=== PATIENT | female | born 1950 | race Caucasian/White ===

== ENCOUNTER → 2017-01-04 | Outpatient (CLI) | payer OTHER | LOC: BMCIMAGING 09:37 | PROVIDERS: ATTEND Orthopaedic Surgery | DX: M16.11 Unilateral primary osteoarthritis, right hip (principal) ==

== ENCOUNTER → 2017-01-12 | Outpatient (CLI) | payer OTHER | LOC: CIMAGING 10:16 | PROVIDERS: ATTEND Orthopaedic Surgery | DX: Z01.818 Encounter for other preprocedural examination (principal); M16.11 Unilateral primary osteoarthritis, right hip; M85.48 Solitary bone cyst, other site; M51.36 Other intervertebral disc degeneration, lumbar region; M47.896 Other spondylosis, lumbar region | CPT/HCPCS: 72192-PO ==

== ENCOUNTER 2017-02-05 12:53 | Inpatient (IN) | payer OTHER ==
--- NOTE | 2017-02-05 12:38 | PDHPUP ---
History & Physical Update H&P update statement: This history and physical update is based on an assessment of the patient which was completed after admission or registration (within 24 hours), but prior to the surgery/procedure.
[2017-02-05] MEDS ORDERED: ROPIVACAINE 0.2% 80 MG, EPINEPHrine 0.2 MG, morphINE 10 MG in BAG 0 ML IU ONE (13:30)
[2017-02-05] MEDS ORDERED: FAMOTIDINE 20 MG TAB PO ONE (13:30)
[2017-02-05] MEDS ORDERED: TRANEXAMIC ACID 3,000 MG in NS 50 ML IRR ONE (13:30)
[2017-02-05] MEDS ORDERED: NS IV ONE (13:30)
[2017-02-05] MEDS ORDERED: ACETAMINOPHEN 325 MG TAB PO ONE (13:30)
[2017-02-05] MEDS ORDERED: ceFAZolin 2 GM/DEXTROSE 100 ML IV ONE (13:30)
[2017-02-05] MEDS ORDERED: TRANEXAMIC ACID IV ONE (13:30)
[2017-02-05] MEDS ORDERED: LIDOCAINE 1% 2 ML INJ ID PRN (13:40)
[2017-02-05] MEDS ORDERED: LR 1,000 ML IV ONE (13:40)
[2017-02-05] MEDS ORDERED: THROMBIN (BOVINE) 5,000 UNIT VIAL TP ONE (13:49)
[2017-02-05] MEDS ORDERED: CALCIUM CHLORIDE 1 GM/10 ML INJ ONE (13:49)
[2017-02-05] MEDS ORDERED: ceFAZolin 1 GM/5 ML SYR ONE (13:50)
[2017-02-05] MEDS ORDERED: MIDAZOLAM 2 MG/2 ML VIAL IVP ONE (14:07)
--- NOTE | 2017-02-05 14:07 | PDANEPAE ---
ANE Past Medical History - Cardiovascular History Hx Hypertension: No Hx Arrhythmias: No Hx Chest Pain: No Hx Coronary Artery / Peripheral Vascular Disease: No Hx CHF / Valvular Disease: No Hx Palpitations: No - Pulmonary History Hx COPD: No Hx Asthma/Reactive Airway Disease: No Hx Recent Upper Respiratory Infection: No Hx Oxygen in Use at Home: No Hx Sleep Apnea: Yes Sleep Apnea Screening Result - Last Documented: Negative Pulmonary History Comment: CHILDHOOD ASTHMA. ENVIRONMENTAL - Neurologic History Hx Cerebrovascular Accident: No Hx Seizures: No Hx Dementia: No - Endocrine History Hx Diabetes: No - Renal History Hx Renal Disorders: No - Liver History Hx Hepatic Disorders: No Hepatic History Comment: LOW FUNCTIONING GALL BLADDER - Neurological & Psychiatric Hx Hx Neurological and Psychiatric Disorders: No Neurological / Psychiatric History Comment: Occ back pain-sravani in a.m. - Cancer History Hx Cancer: Yes Cancer History Comment: BREAST CANCER R 2013 - LUMPECTOMY & RADIATION - Congenital Disorder History Hx Congenital Disorders: No - GI History Hx Gastrointestinal Disorders: No - Other Health History Other Health History: OA -R hip - Chronic Pain History Chronic Pain: Yes (R hip) - Surgical History Prior Surgeries: Lap nikhil 2016. 02/10/15 left river with jignesh. LUMPECTOMY R BREAST. REVISION FOR MARGINS. L FOOT BUNIONECTOMY. HYSTERECTOMY. EXPLOR LAP APPENDECTOMY-age 10. FIBROIDECTOMY. TONSILLECTOMY ANE Review of Systems - Exercise capacity METS (RN): 4 METS ANE Patient History - Allergies Allergies/Adverse Reactions: aspirin Allergy (Verified 01/24/17 11:51) Other-Enter Comments - Home Medications Home Medications: Herbals/Supplements -Info Only 1 ea PO DAILY 01/17/17 [Last Taken 2 Weeks Ago] - NPO status NPO Since - Liquids (Date): 02/05/17 NPO Since - Liquids (Time): 08:00 NPO Since - Solids (Date): 02/04/17 NPO Since - Solids (Time): 20:30 - Smoking Hx Smoking Status: Never smoked - Family Anes Hx Family Hx Anesthesia Complications: NEG ANE Labs/Vital Signs - Vital Signs Blood Pressure: 127/58 Heart Rate: 60 Respiratory Rate: 18 O2 Sat (%): 98 Height: 170.18 cm Weight: 58.513 kg ANE Physical Exam - Airway Mallampati Score: Class 1 Mouth exam: normal dental/mouth exam - Pulmonary Pulmonary: no respiratory distress - Cardiovascular Cardiovascular: regular rate and rhythym - ASA Status ASA Status: I (aspirin allergy noted)
[2017-02-05] MEDS ORDERED: fentaNYL 100 MCG/2 ML INJ ONE ×3 (15:34→19:20)
[2017-02-05] MEDS ORDERED: PROPOFOL/EMULSION 500 MG/50 ML BOTTLE IV ONE (15:34)
[2017-02-05] MEDS ORDERED: MIDAZOLAM 2 MG/2 ML VIAL ONE (15:34)
[2017-02-05] MEDS ORDERED: NALOXONE HCL 0.4 MG/ML INJ IVP PRN (17:02)
[2017-02-05] MEDS ORDERED: ONDANSETRON 4 MG/2 ML VIAL IVP PRN ×2 (17:03→17:19)
[2017-02-05] MEDS ORDERED: DIPHENOXYLATE/ATROPINE LOMOTIL 1 TAB PO PRN (17:19)
[2017-02-05] MEDS ORDERED: METOCLOPRAMIDE 10 MG/2 ML VIAL IVP PRN (17:19)
[2017-02-05] MEDS ORDERED: PROMETHAZINE HCL 25 MG/ML INJ IVP PRN ×2 (17:19→17:49)
[2017-02-05] MEDS ORDERED: ONDANSETRON DISINTEGRATING 4 MG TAB PO PRN (17:19)
[2017-02-05] MEDS ORDERED: LACTULOSE 20 GM/30 ML UDCUP PO PRN (17:19)
[2017-02-05] MEDS ORDERED: MAGNESIUM HYDROXIDE 30 ML UDCUP PO PRN (17:19)
[2017-02-05] MEDS ORDERED: BISACODYL 10 MG SUPP PR PRN (17:19)
[2017-02-05] MEDS ORDERED: PROMETHAZINE HCL 25 MG SUPPR PR PRN (17:19)
[2017-02-05] MEDS ORDERED: diphenhydrAMINE 25 MG CAP PO PRN (17:19)
[2017-02-05] MEDS ORDERED: POLYETHYLENE GLYCOL 3350 17 GM PKT PO PRN (17:19)
[2017-02-05] MEDS ORDERED: PHARMACY PAIN CONSULT 1 EA MISC PRN (17:19)
[2017-02-05] MEDS ORDERED: TEMAZEPAM 15 MG CAP PO PRN (17:19)
[2017-02-05] MEDS ORDERED: oxyCODONE IR 5 MG TAB PO PRN (17:19)
[2017-02-05] MEDS ORDERED: LR 1,000 ML IV SCH (17:30)
[2017-02-05] MEDS ORDERED: HYDROmorphONE/DILAUDID 1 MG/ML SYR ONE ×2 (17:47→18:26)
[2017-02-05] MEDS: fentaNYL 100 MCG/2 ML INJ IVP PRN ×2 (17:50→17:59)
[2017-02-05] MEDS: HYDROmorphONE/DILAUDID 1 MG/ML SYR IVP PRN ×5 (17:51→18:45)
--- NOTE | 2017-02-05 17:55 | POSTANESTH ---
Post Anesthetic Evaluation Respiratory Status: Similar to Pre-op Cond. Level of Consciousness/Mental Status: Mildly Sleepy, Arousable Nausea/Vomiting Control: Adequate, Prn Tx Ordered Complications Possibly Related to Anesthesia: None Noted (Narcotic pain management ordered)
[2017-02-05] MEDS ORDERED: PROMETHAZINE HCL 25 MG/ML INJ ONE (18:03)
[2017-02-05] MEDS ORDERED: oxyCODONE IR 5 MG TAB ONE (18:26)
[2017-02-05] MEDS ORDERED: DIAZEPAM 5 MG TAB ONE (18:58)
[2017-02-05] MEDS: DIAZEPAM 5 MG TAB PO PRN (19:00)
[2017-02-05] MEDS: ACETAMINOPHEN 325 MG TAB PO SCH ×2 (20:27→23:38)
[2017-02-05] MEDS: SENNOSIDES/DOCUSATE SODIUM TAB PO SCH (20:27)
[2017-02-05] MEDS: FAMOTIDINE 20 MG TAB PO SCH (20:27)
[2017-02-05] MEDS: ceFAZolin 2 GM/DEXTROSE 100 ML IV SCH (21:47)
[2017-02-06] MEDS: traMADol 50 MG TAB PO PRN ×4 (00:38→21:16)
[2017-02-06] MEDS: ceFAZolin 2 GM/DEXTROSE 100 ML IV SCH (05:33)
[2017-02-06] MEDS: ACETAMINOPHEN 325 MG TAB PO SCH ×4 (05:33→23:24)
--- NOTE | 2017-02-06 07:36 | PDIAF ---
- Diagnosis Diagnosis: right hip djd Code Status: Full Code - Medication Management Discharge Medications: Medications to Continue on Transfer Herbals/Supplements -Info Only 1 ea PO DAILY 01/17/17 [Last Taken 2 Weeks Ago] Discharge Medications: Refer to the Discharge Home Medication list for PRN reason. - Orders Services needed: Physical Therapy Diet Recommendation: no restrictions on diet Diet Texture: Regular Texture Diet Activity/Weight Bearing Restrictions: wbat. anterior hip precautions. daily dressing changes. may shower without bandage. no soaking or immersion. seek attn for increasing redness, swelling , drainage or discharge. f/u at two weeks [facility] call for appointment - Follow Up Care Current Providers and Referrals: Esther Anglin MD [Primary Care Provider] -
[2017-02-06] MEDS: FAMOTIDINE 20 MG TAB PO SCH ×2 (08:23→21:17)
[2017-02-06] MEDS: SENNOSIDES/DOCUSATE SODIUM TAB PO SCH ×2 (08:23→21:17)
[2017-02-06] MEDS: ASPIRIN 81 MG CHEWABLE TAB PO SCH (08:23)
[2017-02-06 08:32] LABS: HEMOGLOBIN 11.1 g/dL (12.6-16.3)
--- NOTE | 2017-02-06 13:52 | GDS ---
[f rep st] DISCHARGE SUMMARY ADMITTING DIAGNOSES: Right hip degenerative joint disease. DISCHARGE DIAGNOSES: Right hip degenerative joint disease. PROCEDURE: Right total hip arthroplasty. HISTORY OF PRESENT ILLNESS: This patient is a 66-year-old woman who has end-stage arthritis to her right hip. Clinical and radiographic features are consistent with this. She has failed all attempt s at conservative management. I have therefore recommended total hip replacement to her right side. She understood the risks, benefits and alternatives, and wished to proceed. Written consent was sig flaquito and placed in the patient's chart. HOSPITAL COURSE: The patient was admitted to the hospital floor after uncomplicated total hip arthr oplasty. She tolerated the procedure well. Postoperatively, she had an uneventful course. At the time of discharge, she is tolerating an oral diet. Her pain is well controlled on oral medic yahir. She is voiding without difficulty. Dressings are clean, dry, and intact. She has negative H omans bilaterally. No calf pain or swelling. X-rays demonstrate anatomic alignment with no fractur e lucency and concentric reduction of the hip. DISCHARGE INSTRUCTIONS: She is weightbearing as tolerated. Anterior hip precautions. Daily dressi ng changes. No soaking or immersion. Follow up in 2 weeks. Seek attention for increasing redness, swelling, drainage, or discharge. She will be discharged to a subacute nursing facility at the lashay moore's request. She has no assistance at home. Followup in 2 weeks for staple removal. /[id number]/MODL
[2017-02-06] MEDS: DIAZEPAM 5 MG TAB PO PRN (15:39)
[2017-02-07 05:12] LABS: HEMATOCRIT 29.2 % (38.0-47.0)
[2017-02-07] MEDS: ACETAMINOPHEN 325 MG TAB PO SCH ×4 (05:59→23:43)
--- NOTE | 2017-02-07 06:44 | SOAPPROG ---
SOAP Progress Note Assessment/Plan: Assessment: s/p right river Plan:d/c to rehab wbat anterior hip precautions f/u at two weeks 02/07/17 06:42 Subjective: lightheaded no cp or sob jami po Objective: Vital Signs Temp Pulse Resp BP Pulse Ox 36.9 C 65 18 110/48 L 93 02/07/17 04:00 02/07/17 04:00 02/07/17 04:00 02/07/17 04:00 02/07/17 04:00 Laboratory Results 02/07/17 04:50 02/06/17 02/07/17 02/08/17 05:59 05:59 05:59 Intake Total 1620 3100 Output Total 1050 6550 Balance 570 -3450 dressing intact intact pf,df,ehl toes warm and pink neg homans carmen sensation intact to light touch ICD10 Worksheet Patient Problems: Problems Problem Status Onset Osteoarthritis of hip Acute
--- NOTE | 2017-02-07 08:45 | GOP ---
[f rep st] OPERATIVE REPORT DATE OF OPERATION: 02/05/2017 SURGEON: Eliel Rae MD SOLID FIBER PASTER OPERATOR: Mike Antony, SENIOR MECHANICAL DESIGNER, TELEPHONE INSTRUMENT SUPERVISOR, planning assistant, who was a medical necessity for the entir ety of the case preop. PREOPERATIVE DIAGNOSIS: Right hip degenerative joint disease. POSTOPERATIVE DIAGNOSIS: Right hip degenerative joint disease. PROCEDURE PERFORMED: Right total hip arthroplasty. FINDINGS: SPECIMENS: To Pathology, the femoral head. ESTIMATED BLOOD LOSS: 300 cc. INDICATIONS: The patient is a 66-year-old woman, who has end-stage arthritis to her right hip. Cli nical and radiographic features are consistent with this. She has failed all attempts at conservati ve management. I have, therefore, recommended total hip replacement. She understood the risks, hannah efits, alternatives, and wished to proceed. Written consent was signed and placed in patient's iliana t. DESCRIPTION OF PROCEDURE: Patient was identified in the preanesthesia area. The right hip clearly demarcated as the operative site with indelible marker. She was given 2 g of Ancef intravenously en route to the operative suite. In the OR, general endotracheal anesthesia was administered. She wa s positioned in the supine position. The pelvis and both lower extremities were sterilely prepped a nd draped in usual fashion. Appropriate time-out procedure was carried out. Attention was first tu rned to the left iliac crest. A 2 cm incision was made. 3 pins were placed, and the pelvic referen ce array affixed. Attention was turned to the right hip. An anterior approach was made. This was carried sharply thr ough the skin and subcutaneous tissue, directly to the fascia over the tensor fascia aniya. This was then elevated, the tensor retracted in a lateral direction. The underlying vascular structures wer e identified, ligated, cauterized, and transected. The rectus elevated off the anterior capsule. R etractors were placed medial to the femoral neck and superior to the femoral neck. A T was made in the capsule. The retractors were placed in an intracapsular position. There was gross eburnation o f the bone. A pelvic reference check point was placed. A bony wedge was removed from the femoral n chandrika, followed by removal of the remaining head. The contents of the acetabulum were sharply excised . The pelvis was reamed with a single stage reamer using the robot assistance after placement of th e robotic data in standard fashion. A 54 mm reamer was utilized to place an opening angle of 40 deg randell and anteversion of 20 degrees. A Tritanium acetabular shell was then impacted, confirmed to be fully seated. A single 6.5 mm cancellous screw was then placed. A 0-degree X3 liner was placed, c onfirmed to be fully seated. Attention was turned to the femur, which was delivered through the use of retractors, extension of t he table. The proximal canal was opened with a rongeur. Serial broaching was carried out to a size 4 broach. Trial reduction was carried out, and ultimately a 36 mm + 0 mm Biolox head was then plac ed across the trunnion. The hip and acetabulum were copiously irrigated with pulsatile lavage solut ion. The hip was reduced. Leg lengths were restored. External rotation to 90 degrees in full exte nsion demonstrated no instability. The wound was instilled with platelet-rich plasma solution. Ten sor fascia aniya closed using 0 Vicryl. The subcutaneous tissue injected with a joint cocktail of ro pivacaine, morphine, Toradol, and epinephrine. The subcutaneous tissue closed using 2-0 Monocryl, a nd the skin was stapled. Sterile dressings were applied. The patient was awakened, extubated, take n to the recovery room in good, stable condition. TOTAL TOURNIQUET TIME: None. COMPLICATIONS: None. IMPLANTS: [place] Tritanium acetabular shell, size 54 mm, 6.5 mm cancellous bone screw, Trident X3 0-degree polyethylene insert, Biolox Delta ceramic head, 36 mm + 0 mm neck length. Accolade 227-deg ree neck angle hip stem, size 4. DISPOSITION: To the recovery room, then to the floor. She is weightbearing as tolerated. Anterior hip precautions. /[id number]/MODL
[2017-02-07] MEDS: FAMOTIDINE 20 MG TAB PO SCH ×2 (09:17→20:33)
[2017-02-07] MEDS: SENNOSIDES/DOCUSATE SODIUM TAB PO SCH ×2 (09:17→20:33)
[2017-02-07] MEDS: ASPIRIN 81 MG CHEWABLE TAB PO SCH (09:17)
[2017-02-08] MEDS: DIAZEPAM 5 MG TAB PO PRN ×2 (01:32→10:30)
[2017-02-08] MEDS: ACETAMINOPHEN 325 MG TAB PO SCH ×2 (05:44→11:23)
--- NOTE | 2017-02-08 06:35 | SOAPPROG ---
SOAP Progress Note Assessment/Plan: Assessment: s/p right river Plan:d/c to rehab wbat anterior hip precautions f/u at two weeks additional 48 hour stay waiting for insurance approval no inpatient needs at this time 02/07/17 06:42 02/08/17 06:34 Subjective: doing well slept well with valium no cp or sob Objective: Vital Signs Temp Pulse Resp BP Pulse Ox 37.0 C 76 18 126/64 H 95 02/07/17 23:31 02/07/17 23:31 02/07/17 23:31 02/07/17 23:31 02/07/17 23:31 Laboratory Results 02/07/17 04:50 02/07/17 02/08/17 02/09/17 05:59 05:59 05:59 Intake Total 3100 2300 Output Total 6550 Balance -3450 2300 dressing clean, dry, and intact intact pf,df,ehl toes warm and pink neg homans bilaterally ICD10 Worksheet Patient Problems: Problems Problem Status Onset Osteoarthritis of hip Acute
[2017-02-08 07:54] VITALS: BP 121/66; PULSE 78; RESP 15; TEMP 97.6; O2SAT 98
[2017-02-08] MEDS: ASPIRIN 81 MG CHEWABLE TAB PO SCH (08:50)
[2017-02-08] MEDS: SENNOSIDES/DOCUSATE SODIUM TAB PO SCH (08:50)
[2017-02-08] MEDS: FAMOTIDINE 20 MG TAB PO SCH (08:50)
--- NOTE | 2017-02-08 15:24 | PDIAF ---
- Diagnosis Diagnosis: right hip djd Code Status: Full Code - Medication Management Discharge Medications: Medications to Continue on Transfer Herbals/Supplements -Info Only 1 ea PO DAILY 01/17/17 [Last Taken 2 Weeks Ago] Aspirin [Aspirin 81mg (*)] 81 mg PO DAILY #0 tab.chew 02/06/17 [Last Taken Unknown] oxyCODONE IR [Oxycodone Ir (*)] 5 - 10 mg PO Q3HRS PRN #70 tab 02/06/17 [Last Taken Unknown] Diazepam [Valium 5 MG (*)] 5 mg PO Q6HRS PRN #30 tab 02/08/17 [Last Taken Unknown] Discharge Medications: Refer to the Discharge Home Medication list for PRN reason. - Orders Services needed: Physical Therapy Diet Recommendation: no restrictions on diet Diet Texture: Regular Texture Diet Activity/Weight Bearing Restrictions: wbat. anterior hip precautions. daily dressing changes. may shower without bandage. no soaking or immersion. seek attn for increasing redness, swelling , drainage or discharge. f/u at two weeks [facility] call for appointment - Follow Up Care Current Providers and Referrals: Esther Anglin MD [Primary Care Provider] - Eliel Rae MD [Medical Doctor] - follow up in 2 weeks (call to schedule appt)
== END 2017-02-08 17:15 | DRG 470 ==
LOC: F3N 12:53
PROVIDERS: ADMIT Orthopaedic Surgery; ATTEND Orthopaedic Surgery
PROC: 0SR904Z Replacement of Right Hip Joint with Ceramic on Polyethylene Synthetic Substitute, Open Approach (ICD-10-PCS; principal; 2017-02-05 14:45)
DX: M16.11 Unilateral primary osteoarthritis, right hip (principal); Z85.3 Personal history of malignant neoplasm of breast
CPT/HCPCS: 97110-GP; 97116-GP; 97161-GP; 97165-GO; 97530-GO; 97530-GP; 97535-GO; C1713; J0171; J0690; J1170; J2250; J2550; J2704; J2795; J3010

== ENCOUNTER → 2017-03-16 | Outpatient (CLI) | payer OTHER | LOC: BMCIMAGING 11:06 | PROVIDERS: ATTEND Physician Assistant | DX: Z96.641 Presence of right artificial hip joint (principal) ==

== ENCOUNTER → 2017-04-20 | Outpatient (CLI) | payer OTHER | LOC: BMCIMAGING 10:56 | PROVIDERS: ATTEND Physician Assistant | DX: Z47.1 Aftercare following joint replacement surgery (principal); Z96.641 Presence of right artificial hip joint ==

== ENCOUNTER → 2018-09-12 | Outpatient (CLI) | payer OTHER | LOC: CIMAGING 10:58 | PROVIDERS: ATTEND Family Medicine | DX: R05 Cough (principal); R06.00 Dyspnea, unspecified | CPT/HCPCS: 71046-PO ==